=== PATIENT | male | born 1985 | race Two or more races ===

== ENCOUNTER 2023-10-08 10:06 | Emergency (ER) | payer MEDICAID ==
[~2023-10-08] VITALS: Ht 177.8 cm; Wt 91.0 kg
[~2023-10-08 10:06] MED LIST: CALC-1042; TOPUD; WARF3TAB58; WARF5TAB76
[2023-10-08 10:25] VITALS: BP 137/90; PULSE 84; RESP 16; TEMP 98.2; O2SAT 100
[2023-10-08 14:13] LABS: PROTHROMBIN TIME 10.7 sec (9.6-11.0)
[2023-10-08 14:15] LABS: ALANINE AMINOTRANSFERASE 23 IU/L (10-49); ALBUMIN 4.5 g/dL (3.2-4.8); ASPARTATE AMINOTRANSFERASE 23 IU/L (<34); BILIRUBIN TOTAL 1.3 mg/dL (0.1-1.0); CALCIUM 9.7 mg/dL (8.7-10.4); CARBON DIOXIDE 28 mEq/L (21-32); CHLORIDE 105 mEq/L (98-107); CREATININE 0.9 mg/dL (0.6-1.3); GLUCOSE 92 mg/dL (70-105); POTASSIUM 4.1 mEq/L (3.5-5.1); PROTEIN TOTAL 7.1 g/dL (6.0-8.3); SODIUM 139 mEq/L (136-145); UREA NITROGEN BLOOD 16 mg/dL (9-23)
[2023-10-08 14:36] LABS: BASOPHILS % 0.9 % (0.0-2.0); EOSINOPHILS % 0.3 % (0.0-5.0); HEMATOCRIT. 35.4 % (42.0-52.0); HEMOGLOBIN. 12.4 g/dL (14.0-18.0); LYMPHOCYTES % 48.9 % (20.0-50.0); MEAN CORPUSCULAR HEMOGLOBIN 44.8 pg (28.0-32.0); MEAN CORPUSCULAR HGB CONC 35.1 g/dL (31.0-37.0); MEAN CORPUSCULAR VOLUME 127.7 fL (80.0-94.0); MEAN PLATELET VOLUME 7.4 fl (7.4-10.4); MONOCYTES % 8.5 % (2.0-8.0); NEUTROPHILS % 41.4 % (40.0-76.0); PLATELET 248 x1000/uL (130-400); RED BLOOD CELL COUNT 2.77 mill/uL (4.7-6.1); RED CELL DISTRIBUTION WIDTH 17.1 % (11.6-14.6); WHITE BLOOD COUNT 2.7 x1000/uL (4.5-11.0)
[2023-10-08 14:45] LABS: ADD RBC MORPHOLOGY YES; DIFFERENTIAL COMMENT 1
[2023-10-08 16:04] LABS: ANISOCYTOSIS 1+; PLATELET ESTIMATE NORMAL
== END 2023-10-08 16:20 | disposition home or self-care (01) ==
LOC: ER 10:06
DX: R04.0 Epistaxis (principal)
CPT/HCPCS: 36415; 80053; 85025; 99283